=== PATIENT | female | born 1970 | race Caucasian/White ===

== ENCOUNTER 2019-05-22 06:53 | Day surgery (SDC) | payer OTHER ==
[~2019-05-22] VITALS: Ht 160 cm; Wt 56.7 kg
[2019-05-22] MEDS ORDERED: CEFAZOLIN 1 GM IVPB PREMIX 50 ML IV ONE (08:00)
[2019-05-22] MEDS ORDERED: DEXAMETHASONE SOD PHOSPHATE 4 MG/ML VIAL IVP ONE (09:00)
[2019-05-22] MEDS ORDERED: SEVOFLURANE 15 MIN GAS INH ONE (09:00)
[2019-05-22] MEDS ORDERED: BUPIVACAINE /PF 0.5% 30 ML VIAL INJ ONE (09:00)
[2019-05-22] MEDS ORDERED: NS IRRIG SOLN 1000 ML IR ONE (09:00)
[2019-05-22] MEDS ORDERED: METOCLOPRAMIDE HCL 10 MG/2 ML VIAL IVP ONE (09:00)
[2019-05-22] MEDS ORDERED: ROCURONIUM BROMIDE 10 MG/ML (ZEMURON) IV ONE (09:00)
[2019-05-22] MEDS ORDERED: SUCCINYLCHOLINE CHLORIDE 20 MG/ML(QUELICIN) IVP ONE (09:00)
[2019-05-22] MEDS ORDERED: fentaNYL CITRATE 250 MCG/5 ML AMP IV ONE (09:00)
[2019-05-22] MEDS ORDERED: LR 1,000 ML IV.SOLN IV ONE (09:00)
[2019-05-22] MEDS ORDERED: DIPHENHYDRAMINE INJ 50 MG/ML VIAL IV ONE (09:00)
[2019-05-22] MEDS ORDERED: NS 100 ML BAG IV ONE (09:00)
[2019-05-22] MEDS ORDERED: MIDAZOLAM HCL 5 MG/5 ML VIAL IVP ONE (09:00)
[2019-05-22] MEDS ORDERED: KETOROLAC TROMETHAMINE 30 MG VIAL IVP ONE (09:00)
[2019-05-22] MEDS ORDERED: PROPOFOL 200MG/ 20ML VIAL (DIPRIVAN) IV ONE (09:00)
[2019-05-22] MEDS ORDERED: ONDANSETRON HCL 4 MG/2 ML VIAL IVP ONE (09:00)
[2019-05-22] MEDS ORDERED: HYDROmorphone 2 MG/ML VIAL IVP PRN ×2 (09:45)
[2019-05-22] MEDS ORDERED: LR 1,000 ML IV SCH (09:45)
[2019-05-22] MEDS ORDERED: HYDROmorphone 1 MG INJ. 1 MG/ML AMPUL IVP PRN (09:45)
[2019-05-22] MEDS ORDERED: MEPERIDINE HCL/PF 25 MG/ML DISP.SYRIN IVP PRN (09:45)
[2019-05-22] MEDS ORDERED: HYDROcodone/ACETAMIN 5-325 MG TAB (NORCO/ VICODIN) PO PRN (10:15)
[2019-05-22] MEDS ORDERED: OXYCODONE/ACETAMINOPHEN 5-325 TABLET PO PRN ×2 (10:15)
[2019-05-22] MEDS ORDERED: ONDANSETRON HCL 4 MG/2 ML VIAL IVP PRN (10:15)
[2019-05-22 11:22] VITALS: BP_SYST 127
[2019-05-22] MEDS ORDERED: SIMETHICONE 80 MG TAB.CHEW PO SCH (13:00)
== END 2019-05-22 12:00 | disposition home or self-care (01) ==
LOC: SDS 06:53 → SMU 06:55 → EDSTATUS 08:00 → SDS 12:00
PROVIDERS: ATTEND Specialist
DX: N84.0 Polyp of corpus uteri (principal); N92.0 Excessive and frequent menstruation with regular cycle; Z30.2 Encounter for sterilization; Z64.1 Problems related to multiparity; F90.9 Attention-deficit hyperactivity disorder, unspecified type; N83.201 Unspecified ovarian cyst, right side; Z98.890 Other specified postprocedural states; Z79.899 Other long term (current) drug therapy; Z88.8 Allergy status to other drugs, medicaments and biological substances
CPT/HCPCS: 58563; 58661; 88305; J0330; J0690; J1100; J1200; J1885; J2250; J2405; J2704; J2765; J3010; J3490; J7120